=== PATIENT | female | born 1965 | race Hispanic/Latino ===

== ENCOUNTER 2018-05-07 16:23 | Emergency (ER) | payer SELFPAY ==
[~2018-05-07] VITALS: Ht 157.5 cm; Wt 68.0 kg
[2018-05-07] MEDS ORDERED: IBUPROFEN 600 MG TAB PO STA (16:44)
[2018-05-07] MEDS ORDERED: CYCLOBENZAPRINE HCL 10 MG TAB PO ONE (16:45)
[2018-05-07] MEDS ORDERED: DEXILANT30 MG PO (16:47)
[2018-05-07] MEDS ORDERED: CITALOPRAM HBR20 MG PO (16:47)
[2018-05-07] MEDS ORDERED: LISINOPRIL2.5 MG PO (16:47)
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
[2018-05-07 20:18] VITALS: BP 106/75
--- OUTSIDE RECORDS SUMMARY | 2018-05-15 12:06 | XMS REPORT | Clinical Summary ---
Author Author [facility] Organization [facility] Address Unknown Phone Unavailable Care Team Providers Care Senior Electrical Project Manager Name Role Phone Colton Cano NP PCP Allergies No Known Allergies Current Medications Prescription Sig. Disp. Refills Start End Date Status Date cetirizine (ZYRTEC) 10 mg Take 1 tablet by mouth 30 tablet 3 12/06/19 Active tabletIndications: nightly at bedtime as 17 Seasonal allergic needed for Allergies or rhinitis due to pollen Rhinitis. citalopram (CELEXA) 20 mg Take 1 tablet by mouth 30 tablet 2 01/06/20 Active tabletIndications: Feels daily. 18 depressed, Stress at home, Difficulty sleeping ibuprofen (MOTRIN) 600 mg Take 1 tablet by mouth 30 tablet 0 01/06/20 Active tabletIndications: every 8 hours as needed 18 Tension headache, Chest for Pain. pain, unspecified type lisinopril (PRINIVIL) 5 Take 1 tablet by mouth 30 tablet 2 01/06/20 Active mg tabletIndications: daily. 18 Tension headache, Chest pain, unspecified type, SOB (shortness of breath), Stress at home, EKG abnormalities, Elevated BP without diagnosis of hypertension dexlansoprazole Take 1 capsule by mouth 90 capsule 0 04/13/20 Active (DEXILANT) 30 mg delayed daily. 18 release capsuleIndications: Gastritis without bleeding, unspecified chronicity, unspecified gastritis type, Epigastric abdominal tenderness without rebound tenderness polyethylene glycol Add lukewarm drinking 4000 mL 0 05/06/20 Active (GOLYTELY) 236-22.74-6.74 water to the fill elma (4 18 -5.86 gram oral liters) and shake. Drink solutionIndications: as directed by your Positive occult stool doctor.. blood test dexlansoprazole Take 1 capsule by mouth 90 capsule 0 12/06/19 07/27/20 Discontin (DEXILANT) 30 mg delayed daily. 17 17 ued release capsuleIndications: Gastritis without bleeding, unspecified chronicity, unspecified gastritis type dexlansoprazole Take 1 capsule by mouth 90 capsule 0 07/27/20 11/28/19 Discontin (DEXILANT) 30 mg delayed daily. 17 18 ued release capsuleIndications: Gastritis without bleeding, unspecified chronicity, unspecified gastritis type dexlansoprazole Take 1 capsule by mouth 90 capsule 0 11/28/19 01/06/20 Discontin (DEXILANT) 30 mg delayed daily. 18 18 ued release capsuleIndications: Gastritis without bleeding, unspecified chronicity, unspecified gastritis type dexlansoprazole Take 1 capsule by mouth 90 capsule 0 01/06/20 04/10/20 Discontin (DEXILANT) 30 mg delayed daily. 18 18 ued release capsuleIndications: Gastritis without bleeding, unspecified chronicity, unspecified gastritis type, Epigastric abdominal tenderness without rebound tenderness Active Problems Problem Noted Date Hepatic steatosis 12/05/2016 Impaired fasting blood sugar 07/21/2016 Constipation 05/31/2016 Encounters Date Type Specialty Care Team Description 05/10/2018 Refill Family Practice Satish Randolph MD Feels depressed; Stress at home; Difficulty sleeping 05/07/2018 Pharmacy Visit 05/06/2018 Telephone Family Practice Colton Cano NP Results 05/02/2018 Lab Appointment Lab Colton Cano NP Pure hypercholesterolemia 04/20/2018 Orders Only Family Practice Colton Cano NP Screen for colon cancer (Primary Dx) 04/13/2018 Pharmacy Visit 04/10/2018 Refill [facility] Satish Randolph MD Gastritis without bleeding, unspecified chronicity, unspecified gastritis type; Epigastric abdominal tenderness without rebound tenderness 04/10/2018 Pharmacy Visit 03/28/2018 Pharmacy Visit 03/28/2018 Pharmacy Visit 03/26/2018 Telephone Gastroenterology Rubina Plata Colon Cancer Screening (Education on FIT completion ) 02/23/2018 Pharmacy Visit 02/19/2018 Pharmacy Visit 02/02/2018 Office Visit Family Practice Colton Cano NP Need for Tdap vaccination (Primary Dx); Encounter to discuss test results; Elevated BP without diagnosis of hypertension; Mild episode of recurrent major depressive disorder; Pure hypercholesterolemia 01/17/2018 Hospital Radiology Colton Cano NP Encounter 01/15/2018 Hospital Radiology Colton Cano NP Canceled (Provider Encounter Request) 01/12/2018 Hospital Radiology Colton Cano NP Encounter 01/12/2018 Hospital Radiology Colton Cano NP Encounter 01/12/2018 Ancillary Radiology Procedure 01/12/2018 Orders Only Family Practice Colton Cano NP Abnormal finding on breast imaging (Primary Dx) 01/10/2018 Pharmacy Visit 01/08/2018 Pharmacy Visit 01/05/2018 Office Visit Family Practice Colton Cano NP Tension headache (Primary Dx); Lump or mass in breast; Chest pain, unspecified type; SOB (shortness of breath); Feels depressed; Epigastric abdominal tenderness without rebound tenderness; Stress at home; Gastritis without bleeding, unspecified chronicity, unspecified gastritis type; Screening for breast cancer; Screen for colon cancer; Difficulty sleeping; EKG abnormalities; Elevated BP without diagnosis of hypertension 01/05/2018 Pharmacy Visit 12/12/2017 Pharmacy Visit 12/11/2017 Pharmacy Visit 11/27/2017 Pharmacy Visit 11/27/2017 Pharmacy Visit 11/27/2017 Nurse Triage Marcela Frank RN 11/27/2017 Refill [facility] Arin Clark DO Gastritis without bleeding, unspecified chronicity, unspecified gastritis type 07/28/2017 Ancillary Radiology Colton Cano NP Chest pain, unspecified Procedure type 07/27/2017 Office Visit [facility] Practice Colton Cano NP Bilateral hand numbness Arin Clark DO (Primary Dx); Chest pain, unspecified type; Preventative health care; Gastritis without bleeding, unspecified chronicity, unspecified gastritis type; Elevated BP without diagnosis of hypertension 07/27/2017 Pharmacy Visit after 05/06/2017 Immunizations Name Dates Previously Given Next Due Influenza <Unspecified> 05/27/2017 Influenza Vaccine 05/31/2016, 06/22/2011 TDap (Tetanus Toxoid, 02/02/2018 Reduced Diphtheria Toxoid And Acellular Pertussis, Absorbed) Family History Medical History Relation Name Comments Cancer Father ear Diabetes Father Arthritis Mother Diabetes Mother Heart Mother Hypertension Mother Relation Name Status Comments Brother Alive 8 brothers Father Cancer/Stroke (Age 81) Mother Stroke (Age 54) Sister Alive 5 sisters Social History Tobacco Use Types Packs/Day Years Used Date Never Smoker Smokeless Tobacco: Never Used Tobacco Cessation: Counseling Given: Yes Alcohol Use Drinks/Week oz/Week Comments No Sex Assigned at Date Recorded Not on file Last Filed Vital Signs Vital Sign Reading Time Taken Blood Pressure 119/85 02/02/2018 10:04 AM CDT Pulse 79 02/02/2018 10:04 AM CDT Temperature 37.1 C (98.7 F) 02/02/2018 10:04 AM CDT Respiratory Rate 18 02/02/2018 10:04 AM CDT Oxygen Saturation 100% 01/17/2018 9:21 AM CDT Inhaled Oxygen - - Concentration Weight 67.1 kg (148 lb) 02/02/2018 10:04 AM CDT Height 157.5 cm (5' 2") 02/02/2018 10:04 AM CDT Body Mass Index 27.07 02/02/2018 10:04 AM CDT Plan of Treatment Date Type Specialty Care Team Description 05/21/2018 Office Visit Family Practice Coltno aCno NP check up [phone] Health Maintenance Due Date Last Done Comments IMM Influenza Seasonal 04/30/2018 05/27/2017Apr to September (>/=19 yrs) Cervical Cancer Scrn (3 06/09/2018 06/09/2015 (Previously completed - Yrs) External), 06/28/2011 Breast Cancer Scrn 01/12/2019 01/12/2018, 07/11/2016, 10/01/2012, (Yearly) Additional history exists Colorectal Cancer Scrn 04/23/2019 04/23/2018, 06/08/2016 Annual (FIT/FOBT) Age 50 to 75 Procedures Procedure Name Priority Date/Time Associated Diagnosis Comments LIVER PROFILE Routine 05/02/2018 Pure hypercholesterolemia Results for this 7:56 AM CDT procedure are in the results section. LIPID PROFILE Routine 05/02/2018 Pure hypercholesterolemia Results for this 7:56 AM CDT procedure are in the results section. OCCULT BLOOD ICT Routine 04/23/2018 Screen for colon cancer Results for this 2:41 PM CDT procedure are in the results section. MYOCARDIAL PERFUSION Routine 01/17/2018 Chest pain, unspecified Results for this SPECT REST/STRES MULTIPLE 10:17 AM CDT type procedure are in the SOB (shortness of breath) results section. EKG abnormalities TREADMILL STRESS-TRACING 01/17/2018 Results for this ONLY 9:11 AM CDT procedure are in the results section. MAMMO BREAST ULTRASOUND Routine 01/12/2018 Lump or mass in breast Results for this UNILATERAL, LTD 1:32 PM CDT procedure are in the results section. MAMMOGRAM BILAT DIAG Routine 01/12/2018 Lump or mass in breast Results for this DIGITAL 12:11 PM CDT Screening for breast procedure are in the cancer results section. CT CHEST W CONTRAST Routine 01/12/2018 Lump or mass in breast Results for this 10:28 AM CDT Chest pain, unspecified procedure are in the type results section. SOB (shortness of breath) TSH Routine 01/10/2018 Tension headache Results for this 9:07 AM CDT procedure are in the results section. LIVER PROFILE Routine 01/10/2018 Tension headache Results for this 9:07 AM CDT procedure are in the results section. LIPID PROFILE Routine 01/10/2018 Tension headache Results for this 9:07 AM CDT procedure are in the results section. HEPATITIS PANEL Routine 01/10/2018 Tension headache Results for this 9:07 AM CDT procedure are in the results section. HEMOGLOBIN A1C Routine 01/10/2018 Tension headache Results for this 9:07 AM CDT procedure are in the results section. CBC/DIFF Routine 01/10/2018 Tension headache Results for this 9:07 AM CDT procedure are in the results section. BASIC METABOLIC PANEL Routine 01/10/2018 Tension headache Results for this 9:07 AM CDT procedure are in the results section. 12 LEAD EKG STAT 01/05/2018 Chest pain, unspecified Results for this 4:27 PM CDT type procedure are in the Stress at home results section. XRAY CHEST 2 VIEWS Routine 07/28/2017 Chest pain, unspecified Results for this 3:12 PM BEHAVIORAL SCIENCE CHAIR type procedure are in the results section. 12 LEAD EKG Routine 07/27/2017 Chest pain, unspecified Results for this 4:49 PM BEHAVIORAL SCIENCE CHAIR type procedure are in the results section. COMPREHENSIVE METABOLIC Routine 07/27/2017 Preventative health care Results for this PANEL(DBIL NOT INCLUDED) 4:09 PM BEHAVIORAL SCIENCE CHAIR procedure are in the results section. HEMOGLOBIN A1C Routine 07/27/2017 Preventative health care Results for this 4:09 PM BEHAVIORAL SCIENCE CHAIR procedure are in the results section. NEEDLE EMG, 2 EXTREMITIES Routine 07/27/2017 Bilateral hand numbness 3:36 PM BEHAVIORAL SCIENCE CHAIR after 05/06/2017 Results * LIVER PROFILE (05/02/2018 7:56 AM) Only the most recent of 2 results within the time period is included. T Protein 6.4 6.0 - 8.3 g/dL BT MAIN-STATION 1 Albumin 4.7 3.7 - 5.3 g/dL BT MAIN-[facility]ATION 1 T Bilirubin 0.4 0.2 - 1.2 mg/dL BT MAIN-STATION 1 Alk Phos 73 34 - 104 U/L BT MAIN-STATION 1 AST 17 13 - 39 U/L BT MAIN-STATION 1 ALT 16 7 - 52 U/L BT MAIN[facility]ATION 1 D Bilirubin 0.1 0.0 - 0.2 mg/dL BT MAIN-STATION 1 Specimen Blood Performing Organization Address [facility] Phone Number [facility]ISYS [facility]-ST[facility] 1 * LIPID PROFILE (05/02/2018 7:56 AM) Only the most recent of 2 results within the time period is included. Cholesterol 236 mg/dL MAIN-STATION 1 Comment: REFERENCE RANGE: Desirable: <200 mg/dL Borderline: 200-240 mg/dL High Risk: >240 mg/dL Triglyceride 191 (H) <150 mg/dL [facility]ST[facility] 1 Comment: REFERENCE RANGE: Normal: <150 mg/dL Borderline High: 150-199 mg/dL High: 200-499 mg/dL Very High: >bu=636 mg/dL HDL 57 mg/dL BT [facility] 1 Comment: Increased CHD risk: <40 mg/dL Decreased CHD risk: >60 mg/dL LDL 141 mg/dL MAIN-STATION 1 Comment: REFERENCE RANGE: Optimal: <100 mg/dL Near Optimal: 100-129 mg/dL Borderline High: 130-159 mg/dL High: 160-189 mg/dL Very High: >zo=331 mg/dL Specimen Blood Performing Organization Address [facility] Phone Number [facility] MAIN-STATION 1 * OCCULT BLOOD ICT (04/23/2018 2:41 PM) Occult Blood ICT Positive (A) NEG [facility] Specimen Stool Performing Organization Address [facility] Phone Number [facility] * MYOCARDIAL PERFUSION SPECT REST/STRES MULTIPLE (01/17/2018 10:17 AM) MYOCARDIAL PERFUSION Myocardial Perfusion SMS SPECT REST/STRES MULTIPLE Report WOJCIECH PALACIOS Age:52Gender: F :1965 Exam Date: 01/17/2018 08:34 Exam Location:[facility] Nuc Ordering Phys: COLTON CANO Referring Phys:COLTON CANO Reading Phys:Evelyn Gonzalez Fellow Phys: Fellow Phys: Resident: Technologist: MICHAEL PALACIOS Reason For Exam: Indications: ekg changes, chest pain,SOB ICD-9 Codes: Exam Type: MYOCARDIAL PERFUSION SPECT REST/STRES MULTIPLE Procedure CPT: 78186 Additional CPT: BP:/ HR: Risk Factors: Previous Cardiac Procedures: Cardiac History: Chest pain, Shortness of breath Pertinent Meds: Meds past 24 hrs: Pretest Chest Pain: CARDIOLOGY STRESS TEST Pharmacologi Cardiology exercise stress test results pending under separate report. Please look in EPIC under the Procedures Tab in Chart Review. IMAGE PROTOCOLStr/Rst 1 Day Thallium [employer] Dose (mCi)Duration (min)Img Date Img Time Rest: Tc-99m 15 REST DATE Tetrofosmin Stress: Tc-99m 25 STRESS DATE Tetrofosmin Administration Site:Right antecubital fossa SPECT RESULTS Technical Quality:Adequate Raw Data Analysis:Adequate Stress Perfusion Rest Perfusion Summed Stress Score:0 Summed Rest Score: 0 Summed Difference Score: 0 0 - Normal 2 - Abnormal Uptake 4 - Absent 1 - Mildly Reduced Uptake 3 - Severely Reduced Tracer Uptake X - Not Interpretable RV: SPECT images demonstrate homogeneous tracer distribution throughout the myocardium at stress and rest. No reversible perfusion defect is identified.. Summed Stress Score: 0 FUNCTION (calculated via Gated SPECT) Resting LV EF: % EDV:38 ml(70-100 ml) Post Stress LV EF: 95% TID:0.76 ESV:2ml (30-50 ml) Technical Quality: LV Size & Function: Gated SPECT LVEF is overestimated due to the scintigraphic obliteration of the small left ventricular cavity. Visual analysis indicates that the LVEF is well within the normal range of >54%. LV Regional Function: Normal left ventricular wall motion and thickening. Other Findings: Variable Not Implemented IMPRESSIONS 1. Myocardial perfusion imaging is normal at stress and rest. 2. No scan evidence ofreversibleischemia or infarct. 3. Summed Stress Score: 0 4. Normal left ventricular EF of >54%, wall motion and thickening. [place] Control: Do not remove! Evelyn Gonzalez Edited by:Evelyn Gonzalez (Electronically Signed) Final Date:17 January 2018 13:22 Performing Organization Address [facility] Phone Number SMS * TREADMILL STRESS-TRACING ONLY (01/17/2018 9:11 AM) Stress Test [facility] Pedro Pablo Cage [facility] Test Date:2018-01-17 Pat Name: WOJCIECH PALACIOS Department: Room: Gender: Female Tube Builder: MARISSA :[id number] - Requested By: Order Number: [id number] MD: Kleber Oden Interpretive Statements PROCEDURE: Intravenous regadenoson (0.4mg) was infused over 1 minute. SYMPTOMS: No cardiac symptoms were reported during the regadenoson infusion or recovery. HEART RATE/BLOOD PRESSURE: Heart rate of 75 bpm at rest increased to 104 bpm at peak regadenoson infusion. Blood pressure decreased from 129/90 mmHg at rest to 119/80 mmHg after peak regadenoson infusion. This response is normal for regadenoson. ELECTROCARDIOGRAM: The resting ECG showed normal sinus rhythm with poor R-wave progression and non-specific T-wave abnormality. There was no change from the baseline ECG following regadenoson infusion. ARRHYTHMIAS: No ventricular arrhythmias were detected during regadenoson infusion or in the recovery period. CONCLUSION: Normal clinical and hemodynamic regadenoson stress test. Normal electrographic regadenoson stress test with no evidence of inducible ischemia. Radiology report for nuclear imaging portion of test to follow. Electronically Signed On 01-17-18 12:04:42 CDT by Kleber Oden Performing Organization Address [facility] Phone Number [facility] * AllurentO BREAST ULTRASOUND [facility] (01/12/2018 1:32 PM) Impressions Performed At IMPRESSION: BENIGN [facility] There is no sonographic evidence of malignancy.A 1 year screening mammogram is recommended. The findings and recommendations were explained to the patient at the time of the examination. This document has been electronically signed. Yolanda haywood/:01/12/2018 18:12:22 Rn Resource Nurse: GISELA ALMONTE, [facility] letter sent: Comparison to Previous Films Mammogram BI-RADS: 0 Indeterminate Ultrasound BI-RADS: 2 Benign G0204 76305H85.0 N63.0 Narrative Performed At #[id number] - MAMMOGRAM BILAT DIAG DIGITAL SMS BILATERAL DIGITAL DIAGNOSTIC MAMMOGRAM 3D/2D WITH CAD: 01/12/2018 CLINICAL: 52 y.o. woman, with family history of breast cancer in paternal aunt. Screening for maglinancy. Lump on right breast. No complains on the left breast. Comparison is made to exams dated:07/11/2016, 10/01/2012 [facility], and 07/07/2011 [facility]. There are scattered fibroglandular elements in both breasts that could obscure a lesion on mammography. Tomosynthesis was used.Current study was also evaluated with a Computer Aided Detection (CAD) system. No significant masses, calcifications, or other findings are seen in either breast. INCOMPLETE: NEEDS ADDITIONAL IMAGING EVALUATION Given the palpable complaint in the right breast, sonography is recommended. This document has been electronically signed. #[id number] - MAMMO BREAST ULTRASOUND UNILATERAL, LTD ULTRASOUND OF RIGHT BREAST: 01/12/2018 Comparison is made to exams dated:07/11/2016, 10/01/2012 [facility], and 07/07/2011 [facility]. Color flow and real-time ultrasound of the right breast was performed.Powell scale images of the real-time examination were reviewed. No solid mass or other suspicious findings noted in the area of palpable concern in the right breast at 12-2:00 7 cm from the nipple. Procedure Note Interface, Rad/Mammog In - 01/15/2018 7:16 AM CDT #[id number] - MAMMOGRAM BILAT DIAG DIGITAL BILATERAL DIGITAL DIAGNOSTIC MAMMOGRAM 3D/2D WITH CAD: 01/12/2018 CLINICAL: 52 y.o. woman, with family history of breast cancer in paternal aunt. Screening for maglinancy. Lump on right breast. No complains on the left breast. Comparison is made to exams dated: 07/11/2016, 10/01/2012 [facility], and 07/07/2011 [facility]. There are scattered fibroglandular elements in both breasts that could obscure a lesion on mammography. Tomosynthesis was used. Current study was also evaluated with a Computer Aided Detection (CAD) system. No significant masses, calcifications, or other findings are seen in either breast. INCOMPLETE: NEEDS ADDITIONAL IMAGING EVALUATION Given the palpable complaint in the right breast, sonography is recommended. This document has been electronically signed. #[id number] - MAMMO BREAST ULTRASOUND UNILATERAL, LTD ULTRASOUND OF RIGHT BREAST: 01/12/2018 Comparison is made to exams dated: 07/11/2016, 10/01/2012 [facility], and 07/07/2011 [facility]. Color flow and real-time ultrasound of the right breast was performed. Powell scale images of the real-time examination were reviewed. No solid mass or other suspicious findings noted in the area of palpable concern in the right breast at 12-2:00 7 cm from the nipple. IMPRESSION IMPRESSION: BENIGN There is no sonographic evidence of malignancy. A 1 year screening mammogram is recommended. The findings and recommendations were explained to the patient at the time of the examination. This document has been electronically signed. Yolanda Gandhi M.D. yobany/:01/12/2018 18:12:22 Rn Resource Nurse: GISELA ALMONTE [facility] letter sent: Comparison to Previous Films Mammogram BI-RADS: 0 Indeterminate Ultrasound BI-RADS: 2 Benign A9893 [id number] N63.0 N63.0 Performing Organization Address City/State/Zipcode Phone Number SMS * MAMMOGRAM BILAT DIAG DIGITAL (01/12/2018 12:11 PM) Impressions Performed At IMPRESSION: BENIGN SMS There is no sonographic evidence of malignancy.A 1 year screening mammogram is recommended. The findings and recommendations were explained to the patient at the time of the examination. This document has been electronically signed. Yolanda Gandhi M.D. yobany/:01/12/2018 18:12:22 Rn Resource Nurse: GISELA ALMONTE [facility] letter sent: Comparison to Previous Films Mammogram BI-RADS: 0 Indeterminate Ultrasound BI-RADS: 2 Benign G0204 [id number] N63.0 Narrative Performed At #[id number] - MAMMOGRAM BILAT DIAG DIGITAL SMS BILATERAL DIGITAL DIAGNOSTIC MAMMOGRAM 3D/2D WITH CAD: 01/12/2018 CLINICAL: 52 y.o. woman, with family history of breast cancer in paternal aunt. Screening for maglinancy. Lump on right breast. No complains on the left breast. Comparison is made to exams dated:07/11/2016, 10/01/2012 [facility], and 07/07/2011 [facility]. There are scattered fibroglandular elements in both breasts that could obscure a lesion on mammography. Tomosynthesis was used.Current study was also evaluated with a Computer Aided Detection (CAD) system. No significant masses, calcifications, or other findings are seen in either breast. INCOMPLETE: NEEDS ADDITIONAL IMAGING EVALUATION Given the palpable complaint in the right breast, sonography is recommended. This document has been electronically signed. #[id number] - MAMMO BREAST ULTRASOUND UNILATERAL, LTD ULTRASOUND OF RIGHT BREAST: 01/12/2018 Comparison is made to exams dated:07/11/2016, 10/01/2012 [facility], and 07/07/2011 [facility]. Color flow and real-time ultrasound of the right breast was performed.Powell scale images of the real-time examination were reviewed. No solid mass or other suspicious findings noted in the area of palpable concern in the right breast at 12-2:00 7 cm from the nipple. Procedure Note Interface, Rad/Mammog In - 01/15/2018 7:16 AM CDT #[id number] - MAMMOGRAM BILAT DIAG DIGITAL BILATERAL DIGITAL DIAGNOSTIC MAMMOGRAM 3D/2D WITH CAD: 01/12/2018 CLINICAL: 52 y.o. woman, with family history of breast cancer in paternal aunt. Screening for maglinancy. Lump on right breast. No complains on the left breast. Comparison is made to exams dated: 07/11/2016, 10/01/2012 [facility], and 07/07/2011 [facility]. There are scattered fibroglandular elements in both breasts that could obscure a lesion on mammography. Tomosynthesis was used. Current study was also evaluated with a Computer Aided Detection (CAD) system. No significant masses, calcifications, or other findings are seen in either breast. INCOMPLETE: NEEDS ADDITIONAL IMAGING EVALUATION Given the palpable complaint in the right breast, sonography is recommended. This document has been electronically signed. #[id number] - MAMMO BREAST ULTRASOUND UNILATERAL, LTD ULTRASOUND OF RIGHT BREAST: 01/12/2018 Comparison is made to exams dated: 07/11/2016, 10/01/2012 [facility], and 07/07/2011 [facility]. Color flow and real-time ultrasound of the right breast was performed. Powell scale images of the real-time examination were reviewed. No solid mass or other suspicious findings noted in the area of palpable concern in the right breast at 12-2:00 7 cm from the nipple. IMPRESSION IMPRESSION: BENIGN There is no sonographic evidence of malignancy. A 1 year screening mammogram is recommended. The findings and recommendations were explained to the patient at the time of the examination. This document has been electronically signed. Yloanda haywood/:01/12/2018 18:12:22 Rn Resource Nurse: GISELA ALMONTE, [facility] [facility] letter sent: Comparison to Previous Films Mammogram BI-RADS: 0 Indeterminate Ultrasound BI-RADS: 2 Benign [id number] N63.0 N63.0 Performing Organization Address City/State/Zipcode Phone Number SMS * CT CHEST W CONTRAST (01/12/2018 10:28 AM) Impressions Performed At IMPRESSION: SMS Asymmetric fat within the inferior right breast. Correlate with location of the palpable right upper chest wall mass. Otherwise, no masses in the chest wall. Dictated By: Johanny Calloway MD, 01/12/2018 10:46 AM I have reviewed the study and agree with the findings in this report. Signed By: Dannielle Juárez MD, 01/12/2018 2:27 PM Narrative Performed At EXAM: CT Chest WITH contrast SMS INDICATION: small mass to right upper chest wall, tender, growing per pt, SOB, chest pain COMPARISON: None TECHNIQUE: Chest was scanned utilizing a multidetector helical scanner from the lung apex through the level of the adrenal glands without administration of IV contrast. Coronal and sagittal reformations were obtained. Routine protocol was performed. IV CONTRAST: 100 mL of Omnipaque 300 COMPLICATIONS: None RADIATION DOSE: Total DLP: 179 mGy*cm Estimated effective dose: (DLP x 0.014 x size factor) mSv CTDIvol has been reviewed. It is below the limits set by the Radiation Protocol Committee (RPC). FINDINGS: LINES/ TUBES: None. LUNGS AND AIRWAYS:A 3 mm intrafissural nodules in the left major fissure, likely a lymph node. Subsegmental atelectasis in the dependent portions of both lower lobes. Scarring in the right middle lobe and lingula with traction bronchiectasis, likely sequela of previous infection or inflammatory insult.Airways are normal. PLEURA: The pleural spaces are clear. HEART AND MEDIASTINUM: The thyroid gland is normal.No mediastinal, hilar or axillary lymphadenopathy.The heart is normal in size.. There is no pericardial effusion. UPPER ABDOMEN: Unremarkable. BONES: The visualized bony thorax is within normal limits. SOFT TISSUES: Asymmetric fat within the inferior right breast (series 3, image 54 and coronary image 31 and 32). Procedure Note Interface, Rad/Mammog In - 01/12/2018 2:32 PM CDT EXAM: CT Chest WITH contrast INDICATION: small mass to right upper chest wall, tender, growing per pt, SOB, chest pain COMPARISON: None TECHNIQUE: Chest was scanned utilizing a multidetector helical scanner from the lung apex through the level of the adrenal glands without administration of IV contrast. Coronal and sagittal reformations were obtained. Routine protocol was performed. IV CONTRAST: 100 mL of Omnipaque 300 COMPLICATIONS: None RADIATION DOSE: Total DLP: 179 mGy*cm Estimated effective dose: (DLP x 0.014 x size factor) mSv CTDIvol has been reviewed. It is below the limits set by the Radiation Protocol Committee (RPC). FINDINGS: LINES/ TUBES: None. LUNGS AND AIRWAYS: A 3 mm intrafissural nodules in the left major fissure, likely a lymph node. Subsegmental atelectasis in the dependent portions of both lower lobes. Scarring in the right middle lobe and lingula with traction bronchiectasis, likely sequela of previous infection or inflammatory insult. Airways are normal. PLEURA: The pleural spaces are clear. HEART AND MEDIASTINUM: The thyroid gland is normal. No mediastinal, hilar or axillary lymphadenopathy. The heart is normal in size.. There is no pericardial effusion. UPPER ABDOMEN: Unremarkable. BONES: The visualized bony thorax is within normal limits. SOFT TISSUES: Asymmetric fat within the inferior right breast (series 3, image 54 and coronary image 31 and 32). IMPRESSION IMPRESSION: Asymmetric fat within the inferior right breast. Correlate with location of the palpable right upper chest wall mass. Otherwise, no masses in the chest wall. Dictated By: Johanny Calloway MD, 01/12/2018 10:46 AM I have reviewed the study and agree with the findings in this report. Signed By: Dannielle Juárez MD, 01/12/2018 2:27 PM Performing Organization Address City/State/Zipcode Phone Number SMS * HEMOGLOBIN A1C (01/10/2018 9:07 AM) Only the most recent of 2 results within the time period is included. Hemoglobin A1c 5.9 4.3 - 6.1 % BT DIAGNOSTIC IMMUNOLOGY Est Average Gluc 122.6 mg/dL BT DIAGNOSTIC IMMUNOLOGY Specimen Blood Performing Organization Address [facility] Phone Number MISYS BT DIAGNOSTIC IMMUNOLOGY * TSH (01/10/2018 9:07 AM) TSH 1.62 0.57 - 3.74 uIU/mL BT MAIN-STATION 1 Specimen Blood Performing Organization Address City/[facility] Phone Number MISYS BT MAIN-STATION 1 * HEPATITIS PANEL (01/10/2018 9:07 AM) HCV IgG Negative NEG BT MAIN-STATION 3 HBsAg Negative NEG BT MAIN-STATION 3 HAV, IgM Negative NEG BT MAIN-STATION 3 HBcAb, IgM Negative NEG BT MAIN-STATION 3 Specimen Blood Performing Organization Address [facility] Phone Number MISYS BT MAIN-STATION 3 * CBC/DIFF (01/10/2018 9:07 AM) WBC 6.1 4.5 - 11.0 K/uL BT MAIN-STATION 2 RBC 4.60 4.20 - 5.40 M/uL BT MAIN-STATION 2 Hemoglobin 14.7 12.0 - 16.0 g/dL BT MAIN-STATION 2 Hematocrit 43.5 37.0 - 47.0 % BT MAIN-STATION 2 MCV 95 (H) 82 - 92 fL BT MAIN-STATION 2 MCH 32.0 27.0 - 32.0 pg BT MAIN-STATION 2 MCHC 33.8 32.0 - 36.0 g/dL BT MAIN-STATION 2 RDW 41.8 36.4 - 46.3 fL BT MAIN-STATION 2 Platelet 218 150 - 400 K/uL BT MAIN-STATION 2 Mean Platelet Volume 12.1 9.4 - 12.4 fL BT MAIN-STATION 2 Percent NRBC 0.0 BT MAIN-STATION 2 Absolute NRBC 0.00 BT MAIN-STATION 2 Neutrophil 53.2 34.0 - 70.0 % BT MAIN-STATION 2 Lymphocyte 37.8 20.0 - 50.0 % BT MAIN-STATION 2 Monocyte 7.5 5.0 - 12.0 % BT MAIN-STATION 2 Eosinophil 0.7 0.7 - 5.0 % BT MAIN-STATION 2 Basophil 0.5 0.1 - 1.2 % BT MAIN-STATION 2 Pct Immat Gran 0.3 0.0 - 0.5 BT MAIN-STATION 2 Neutrophil, Abs 3.26 1.56 - 6.13 K/uL BT MAIN-STATION 2 Lymphocyte, Abs 2.32 1.18 - 3.74 K/uL BT MAIN-STATION 2 Monocyte, Abs 0.46 (H) 0.24 - 0.36 K/uL BT MAIN-STATION 2 Eosinophil, Abs 0.04 0.04 - 0.36 K/uL BT MAIN-STATION 2 Basophil, Abs 0.03 0.01 - 0.08 K/uL BT MAIN-STATION 2 Absol Immat Gran 0.02 0.00 - 0.03 K/uL BT MAIN-STATION 2 Specimen Blood Performing Organization Address [facility] Phone Number MISYS BT MAIN-STATION 2 * BASIC METABOLIC PANEL (01/10/2018 9:07 AM) CO2 32 (H) 21 - 31 mmol/L BT MAIN-STATION 1 Chloride 98 98 - 107 mmol/L BT MAIN-STATION 1 Potassium 4.7 3.5 - 5.1 mmol/L BT MAIN-STATION 1 Sodium 138 136 - 145 mmol/L BT MAIN-STATION 1 Glucose 97 70 - 110 mg/dL BT MAIN-STATION 1 Urea Nitrogen 15 7 - 25 mg/dL BT MAIN-STATION 1 Creatinine 0.70 0.6 - 1.2 mg/dL BT MAIN-STATION 1 Anion Gap 8 BT MAIN-STATION 1 Calcium 9.9 8.6 - 10.3 mg/dL BT MAIN-STATION 1 GFR, Estimated >60 mL/min/1.73 m2 BT MAIN-STATION 1 GFR, Estim, Afr-Am >60 mL/min/1.73 m2 BT MAIN-STATION 1 Specimen Blood Performing Organization Address [facility] Phone Number MISYS BT MAIN-STATION 1 * 12 LEAD EKG (01/05/2018 4:27 PM) 12 LEAD EKG FOR [facility] Test Date:2018-01-05 Pat Name: WOJCIECH PALACIOS Department: Room: Gender: F Tube Builder: [id number] :1966-0 -18 Requested By: Order Number: Froy villegas MD: Jean Romero M.D. Measurements Intervals [place] Rate: 81 P:50 NM: 152 QRS: 40 QRSD: 88 T:51 QT: 356 QTc:414 Interpretive Statements SINUS RHYTHM MODERATE ST DEPRESSION Electronically Signed On 01-05-18 17:29:13 CDT by Jean Romero M.D. Performing Organization Address City/State/Zipcode Phone Number SMS * XRAY CHEST 2 VIEWS (07/28/2017 3:12 PM) Impressions Performed At IMPRESSION: SMS No acute thoracic abnormality. If the report is "FINALIZED" it indicates that the attending/staff radiologist has reviewed the images and agrees with the resident's interpretation. Dictated By: Garett Nguyen MD, 07/28/2017 3:23 PM I have reviewed the study and agree with the findings in this report. Signed By: Maynor Torres MD, 07/28/2017 3:26 PM Narrative Performed At EXAM: XRAY CHEST 2 VIEWS SMS INDICATION: chest pain COMPARISON: None FINDINGS: PA and lateral views of the chest. TUBES and LINES: None. LUNGS: Lungs are well inflated. No pneumonia. No pulmonary edema. PLEURA: No pneumothorax. No pleural effusion. HEART AND MEDIASTINUM: Cardiomediastinal silhouette is unremarkable. Unremarkable visualized aorta. BONES AND SOFT TISSUES: No acute osseous lesion. Soft tissues are unremarkable. UPPER ABDOMEN: No free air under the diaphragm. Procedure Note Interface, Rad/Mammog In - 07/28/2017 3:31 PM BEHAVIORAL SCIENCE CHAIR EXAM: XRAY CHEST 2 VIEWS INDICATION: chest pain COMPARISON: None FINDINGS: PA and lateral views of the chest. TUBES and LINES: None. LUNGS: Lungs are well inflated. No pneumonia. No pulmonary edema. PLEURA: No pneumothorax. No pleural effusion. HEART AND MEDIASTINUM: Cardiomediastinal silhouette is unremarkable. Unremarkable visualized aorta. BONES AND SOFT TISSUES: No acute osseous lesion. Soft tissues are unremarkable. UPPER ABDOMEN: No free air under the diaphragm. IMPRESSION IMPRESSION: No acute thoracic abnormality. If the report is "FINALIZED" it indicates that the attending/staff radiologist has reviewed the images and agrees with the resident's interpretation. Dictated By: Garett Nguyen MD, 07/28/2017 3:23 PM I have reviewed the study and agree with the findings in this report. Signed By: Maynor Torres MD, 07/28/2017 3:26 PM Performing Organization Address City/[facility] Phone Number SMS * 12 LEAD EKG (07/27/2017 4:49 PM) 12 LEAD EKG FOR [facility] Test Date:2017-07-27 Pat Name: WOJCIECH PALACIOS Department: Room: Gender: F Tube Builder: [id number] :1966-0 4-18 Requested By: Order Number: Froy villegas MD: Jean Romero M.D. Measurements Intervals [place] Rate: 91 P:52 NM: 150 QRS: 34 QRSD: 76 T:41 QT: 350 QTc:430 Interpretive Statements Normal sinus rhythm Normal ECG Electronically Signed On 07-27-17 17:03:55 BEHAVIORAL SCIENCE CHAIR by Jean Romero M.D. Performing Organization Address [facility] Phone Number SMS * COMPREHENSIVE METABOLIC PANEL(DBIL NOT INCLUDED) (07/27/2017 4:09 PM) Albumin 4.4 3.4 - 5.0 g/dL BT OUTPATIENT DRAW 2 Calcium 9.3 8.50 - 10.20 mg/dL BT OUTPATIENT DRAW 2 CO2 27.9 21 - 32 mmol/L BT OUTPATIENT DRAW 2 Chloride 104 98 - 107 mmol/L BT OUTPATIENT DRAW 2 Creatinine 0.75 0.60 - 1.30 mg/dL BT OUTPATIENT DRAW 2 Glucose 90 70 - 99 mg/dL BT OUTPATIENT DRAW 2 Alk Phos 83 45 - 117 U/L BT OUTPATIENT DRAW 2 Potassium 4.0 3.50 - 5.10 mmol/L BT OUTPATIENT DRAW 2 Sodium 139 136 - 145 mmol/L BT OUTPATIENT DRAW 2 ALT 29 12 - 78 U/L BT OUTPATIENT DRAW 2 AST 21 15 - 37 U/L BT OUTPATIENT DRAW 2 Urea Nitrogen 10 7 - 18 mg/dL BT OUTPATIENT DRAW 2 T Bilirubin 0.4 0.2 - 1.0 mg/dL BT OUTPATIENT DRAW 2 T Protein 7.7 6.4 - 8.2 g/dL BT OUTPATIENT DRAW 2 GFR, Estimated >60 mL/min/1.73 m2 BT OUTPATIENT DRAW 2 GFR, Estim, Afr-Am >60 mL/min/1.73 m2 BT OUTPATIENT DRAW 2 Anion Gap 7.1 BT OUTPATIENT DRAW 2 Specimen Blood Performing Organization Address City/[facility] Phone Number MISYS BT OUTPATIENT DRAW 2 after 05/06/2017
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
== END 2018-05-07 20:24 | disposition home or self-care (01) ==
LOC: ER 16:23
DX: R07.89 Other chest pain (principal); S20.219A Contusion of unspecified front wall of thorax, initial encounter; S80.02XA Contusion of left knee, initial encounter; V43.52XA Car driver injured in collision with other type car in traffic accident, initial encounter; Y92.488 Other paved roadways as the place of occurrence of the external cause; I10 Essential (primary) hypertension; K21.9 Gastro-esophageal reflux disease without esophagitis; F41.9 Anxiety disorder, unspecified; F32.9 Major depressive disorder, single episode, unspecified
CPT/HCPCS: 71045; 93005; 99283